=== PATIENT | male | born 1970 | race Caucasian/White ===

== ENCOUNTER 2019-10-27 14:20 | Emergency (ER) | payer OTHER ==
[~2019-10-27] VITALS: Ht 188 cm; Wt 102.3 kg
[2019-10-27 14:42] VITALS: BP 144/88
== END 2019-10-27 16:24 | disposition home or self-care (01) ==
LOC: ER 14:21
DX: S92.902A Unspecified fracture of left foot, initial encounter for closed fracture (principal); M79.672 Pain in left foot; M79.89 Other specified soft tissue disorders; X58.XXXA Exposure to other specified factors, initial encounter; Y93.89 Activity, other specified; Y92.89 Other specified places as the place of occurrence of the external cause; Y99.8 Other external cause status
CPT/HCPCS: 73630; 99283